=== PATIENT | male | born 1970 | race Caucasian/White ===

== ENCOUNTER 2024-10-05 17:50 | Emergency (ER) | payer OTHER, BC, SELFPAY ==
--- NOTE | ~2024-10-05 | XR_ITS ---
CLINICAL HISTORY: chest pain 1 view chest x-ray Comparison: None Findings: The lungs are clear. Normal size heart. No acute fracture. IMPRESSION: 1. No acute findings. This document has been electronically signed by: Reggie Reyes MD on 10/05/2024 18:39:39
[2024-10-05 18:08] VITALS: BP 111/70; PULSE 84; RESP 18; TEMP 36.7; O2SAT 93; BMI 34.8
--- NOTE | 2024-10-05 18:09 | ECG_ITS ---
Test Reason : tachycardia Blood Pressure : */* mmHG Vent. Rate : 68 BPM Atrial Rate : 68 BPM P-R Int : 136 ms QRS Dur : 92 ms QT Int : 374 ms P-R-T Axes : 30 40 48 degrees QTcB Int : 397 ms Normal sinus rhythm Normal ECG When compared with ECG of 26-Dec-2016 18:17, No significant change was found Referred By: Camacho Bass Electronically Signed By: DELLA ROWE
--- NOTE | 2024-10-05 18:18 | ED.GENADULT ---
HPI - General Adult General Chief complaint: Arrhythmia/Palpitations Stated complaint: . heart is escalating w headache Time Seen by Provider: 10/05/24 21:08 Source: patient Mode of arrival: ambulatory Limitations: no limitations History of Present Illness ED Provider: HPI narrative: patient no significant past medical history been having palpitation with heart rate ranging to 110-115 whenever he exert without any chest pain shortness a breath no diaphoresis no syncope also having occipital headache symptoms continuing for last 2 weeks he had minor head injury on 09/04 CT scan of the head is negative at that time patient does have history of migraine headache denies any significant caffeine intake Related Data Previous Rx's ?Medication ?Instructions ?Recorded oxwwgaffpo-pmqxfqoocdtcd-tvbsndor 1 tab PO Q6H PRN haeadace #20 tabs 10/05/24 50 mg-325 mg-40 mg tablet Allergies Allergy/AdvReac Type Severity Reaction Status Date / Time No Known Allergies Allergy Verified 10/05/24 18:09 [No Known Allergies*] Review of Systems Review of Systems: Yes all other systems are reviewed and are negative [facility] Social History Social History Alcohol intake: current Alcohol intake frequency: holidays/special occasions only Alcohol type: beer and hard liquor Smoked in Last 30 Days: No Use of substances other than those prescribed or required for medical reasons: No Advance Directives: No Advance Directives Information Provided: Yes Physical Exam ED Vital Signs: Vital Signs - 24 hr 10/05/24 18:08 10/05/24 21:49 10/05/24 22:01 Temperature 98.0 F 97.7 F 97.7 F Pulse Rate 84 78 78 Respiratory Rate 18 16 16 Blood Pressure 111/70 105/61 105/61 Pulse Oximetry 93 96 96 Oxygen Delivery Method Room Air Room Air Room Air BMI result Body Mass Index 34.8 Appearance: Alert. Oriented X3. No acute distress. Eyes: no pallor or icterus ENT: Pharynx normal. Oral Mucosa moist Neck: Normal inspection. Neck supple. CVS: Normal heart rate and rhythm. Pulses normal. Respiratory: No respiratory distress. Equal air entry bilateral, no wheezing/rales/rhonchi Abdomen: Soft and nontender. Bowel sounds are present, no mass palpable Skin: Skin warm and dry. Normal skin color. Normal skin turgor. Extremities: No lower extremity edema. No calf tenderness Neuro: Oriented X 3. Course Course Course Narrative: RME: Patient presents to ED for tachycardia. Patient states when he exerts himself heart rate went up to 115. Patient denies any chest pain shortness of breath or diaphoresis. Denies any leg swelling or calf pain. Patient denies any pleurisy. Labs EKG x-ray ordered. Medical Decision Making Medical Decision Making [facility] Narrative: patient nonspecific episodes of palpitation without any shortness a breath or chest pain during exertion likely sinus tachycardia patient is advised to follow with bank accountant for further workup including Holter monitoring patient's workup in the ER negative for acute cardiac event Differential Diagnosis Differential Diagnoses: The differential diagnosis associated with the presentation includes SVT/atrial flutter/atrial fibrillation Lab Data [facility] Lab Attestation statement: I reviewed the patient's lab results. 10/05/24 18:24 10/05/24 18:22 Labs: Lab Results 10/05/24 10/05/24 10/05/24 Range/Units 18:22 18:24 19:34 WBC 6.0 (4.8-10.8) X10*3/uL RBC 4.58 L (4.60-5.80) X10*6/uL Hgb 13.7 L (14.0-18.0) g/dl Hct 40.9 L (42.0-52.0) % MCV 89.3 (80.0-98.0) fL MCH 29.9 (27.0-33.0) pg MCHC 33.5 (31.0-36.0) g/dl RDW 12.3 (11.0-16.0) % Plt Count 210 (160-400) X10*3/uL MPV 9.8 (9.4-12.4) fL Immature Gran % (Auto) 0.2 (0.0-0.4) % Neut % (Auto) 54.3 (45-73) % Lymph % (Auto) 34.2 (20-40) % [place] % (Auto) 8.3 (2-11) % Eos % (Auto) 2.3 (0-4) % Baso % (Auto) 0.7 (0-2) % Lymph # (Auto) 2.1 (1.2-4.9) X10*3/uL [place] # (Auto) 0.5 (0.1-1.2) X10*3/uL Eos # (Auto) 0.1 (0.0-0.4) X10*3/uL Baso # (Auto) 0.0 (0.0-0.2) X10*3/uL Abs Immat Gran (auto) 0.01 (0.00-0.03) X10*3/uL Absolute Neuts (auto) 3.3 (2.0-8.3) x10*3/uL Absolute Nucleated RBC 0.000 (0.0-0.012) X10*3/uL Nucleated RBC % (auto) 0.0 (0.0-0.2) /100WBC PT 9.9 L (10.9-12.4) SEC INR 0.9 (0.9-1.1) APTT 30.2 (26.0-36.8) SEC Sodium 140 (135-145) mmol/L Potassium 4.1 (3.3-5.1) mmol/L Chloride 111 H (96-108) mmol/L Carbon Dioxide 22 (22-29) mmol/L Anion Gap 11 L (12-20) BUN 16 (9-16) mg/dL Creatinine 1.00 (0.5-1.4) mg/dL Estim Creat Clear Calc 111.6 Estimated GFR > 60 Random Glucose 94 (60-115) mg/dL Calcium 9.2 (8.4-10.2) mg/dL Total Bilirubin 0.3 (0.0-1.0) mg/dL AST 35 (5-37) U/L ALT 28 (0-40) U/L Alkaline Phosphatase 85 (39-117) U/L Troponin I High Sens < 2.7 (<3.5-35.0) ng/L B-Natriuretic Peptide 14 (<100) pg/mL Total Protein 6.8 (6.5-8.0) g/dL Albumin 4.3 (3.5-5.0) g/dL Independent Interpretation I performed an independent interpretation of an: EKG Interpretation: normal sinus rhythm heart rate 68 beats per minute normal interval normal axis no acute ST-T changes no acute ischemia Discharge Plan Discharge Clinical Impression: Palpitations, Migraine Patient Disposition: Home, Self-Care Instructions: Heart Palpitations (ED), Migraine Headache (ED) Additional Instructions: take medication for migraine headache follow up with bank accountant/ PCP for further evaluation decrease caffeine intake report to ER if passing out episode/ chest pain not feeling better Prescriptions: New ejzxuejcau-xwdzhdrqyypym-nnfb 50-325-40 mg tablet 1 tab PO Q6H PRN (Reason: haeadace) Qty: 20 0RF Referrals: Robert Dowd MD [Physician] - 10 days Interventions: ED Discharge Assessment Last Done: 10/05/24 22:01 Discharge Date/Time: 10/05/24 22:01 Print Language: Greek
[2024-10-05 18:27] LABS: MANUAL DIFF FLAG NO
[2024-10-05 18:32] LABS: Basophils Percent Auto 0.7 % (0-2); Eosinophils Absolute Auto 0.1 X10*3/uL (0.0-0.4); Eosinophils Percent Auto 2.3 % (0-4); Hematocrit 40.9 % (42.0-52.0); Hemoglobin 13.7 g/dl (14.0-18.0); Imm Gran Abs Auto 0.01 X10*3/uL (0.00-0.03); Imm Gran Pct Auto 0.2 % (0.0-0.4); Lymphocytes Absolute Auto 2.1 X10*3/uL (1.2-4.9); Lymphocytes Percent Auto 34.2 % (20-40); Mean Corpuscular HGB Conc 33.5 g/dl (31.0-36.0); Mean Corpuscular Hemoglobin 29.9 pg (27.0-33.0); Mean Corpuscular Volume 89.3 fL (80.0-98.0); Mean Platelet Volume 9.8 fL (9.4-12.4); Monocytes Absolute Auto 0.5 X10*3/uL (0.1-1.2); Monocytes Percent Auto 8.3 % (2-11); Neutrophils Absolute Auto 3.3 x10*3/uL (2.0-8.3); Neutrophils Percent Auto 54.3 % (45-73); Platelet Count 210 X10*3/uL (160-400); Red Blood Count 4.58 X10*6/uL (4.60-5.80); Red Cell Distribution Width 12.3 % (11.0-16.0)
[2024-10-05 18:42] LABS: Alanine Aminotransferase 28 U/L (0-40); Albumin Level 4.3 g/dL (3.5-5.0); Alkaline Phosphatase 85 U/L (39-117); Anion Gap 11 (12-20); Aspartate Amino Transferase 35 U/L (5-37); Bilirubin Total 0.3 mg/dL (0.0-1.0); Blood Urea Nitrogen 16 mg/dL (9-16); Calcium 9.2 mg/dL (8.4-10.2); Carbon Dioxide 22 mmol/L (22-29); Chloride 111 mmol/L (96-108); Creatinine Clr Calc Pharmacy 111.6; Estimated Glomerular Filt Rate > 60; Glucose Random 94 mg/dL (60-115); Potassium 4.1 mmol/L (3.3-5.1); Sodium 140 mmol/L (135-145); Total Protein 6.8 g/dL (6.5-8.0)
[2024-10-05 18:49] LABS: B Type Natriuretic Peptide 14 pg/mL (<100)
[2024-10-05 18:53] LABS: Troponin-I High Sensitivity < 2.7 ng/L (<3.5-35.0)
[2024-10-05 19:43] LABS: INTERNATIONAL NORM RATIO 0.9 (0.9-1.1); Prothrombin Time 9.9 SEC (10.9-12.4)
[2024-10-05 19:46] LABS: Partial Thromboplastin Time 30.2 SEC (26.0-36.8)
[2024-10-05 21:49] VITALS: BP 105/61; PULSE 78; RESP 16; TEMP 36.5; O2SAT 96
[2024-10-05 22:01] VITALS: BP 105/61; PULSE 78; RESP 16; TEMP 36.5; O2SAT 96
== END 2024-10-05 22:01 | disposition home or self-care (01) ==
PROVIDERS: Physician Assistant; Emergency Provider Internal Medicine; PCP Nurse Practitioner Family
DX: I49.9 Cardiac arrhythmia, unspecified (principal); G43.909 Migraine, unspecified, not intractable, without status migrainosus; R00.0 Tachycardia, unspecified; Z79.899 Other long term (current) drug therapy
CPT/HCPCS: 36415; 71045; 80053; 83880; 84484; 85025; 85610; 85730; 93005; 99283; 99284

== ENCOUNTER → 2024-10-05 18:09 | Outpatient (BNV) | payer OTHER, BC, SELFPAY | PROVIDERS: Emergency Provider Internal Medicine; PCP Nurse Practitioner Family; Visit Provider Internal Medicine | DX: R00.0 Tachycardia, unspecified (principal) | CPT/HCPCS: 93010 ==

== ENCOUNTER → 2024-10-05 18:17 | Outpatient (BNV) | payer OTHER, SELFPAY | PROVIDERS: PCP Nurse Practitioner Family; Visit Provider Radiology Diagnostic Radiology | DX: R07.9 Chest pain, unspecified (principal) | CPT/HCPCS: 71045 ==

== ENCOUNTER 2024-11-02 08:27 | Outpatient (AMB) | payer OTHER, BC, SELFPAY ==
--- NOTE | 2024-11-02 08:29 | MHC.OFFVIS ---
Vital Signs 11/02/24 08:30 Height 6 ft 1 in Weight 267 lb 10.259 oz BMI 35.3 BP 108/62 Blood Pressure Location Lt brachial Position Sitting Pulse 72 Pulse Source Pulse Oximeter Intake Visit Reasons: [facility] Follow up-heart is escalating w headache Tip Length Checker Required: No Allergies No Known Allergies [No Known Allergies*] Allergy (Verified 11/02/24 08:31) Medication List - Last Reconciled 11/02/24 by VU Perez hzwmtgvwjv-itjoclizkxsab-nwjj 50-325-40 mg 1 tab PO Q6H PRN sertraline 25 mg PO DAILY HPI HPI [facility] Follow up-heart is escalating w headache: Details: Rubén is a 54-year-old male with no cardiac history who was recently seen in the emergency room for elevated heart rate and headache without significant findings. He was referred to Cardiology in follow-up. Today he presents for cardiology consultation. He tells me that on 08/28/24 he had a fall at work and sustained a head injury with contusion and concussion. He was out of work for a brief period of time, then put on light duty and is now back to work full-time, no restrictions. 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 He says these can be very heavy to lift and move. He has been noticing that when he does exertional activities he is getting a elevated heart rate and headache in the region of his contusion. He says he did not get this symptom prior to his fall in August. No chest discomfort, shortness of breath, lightheadedness, presyncope, syncope. He has never been diagnosed with hypertension. No diabetes or known hyperlipidemia. He has no family history of heart disease. He smoked briefly as a teenager and quit age 17. He has rare alcohol use. He does not engage in any routine exercise. [facility] Social History Alcohol intake: current Alcohol intake frequency: holidays/special occasions only Alcohol type: beer and hard liquor Review of Systems Const All systems reviewed & are unremarkable except as noted in HPI and below Reports headache(s) (with physical exertion) ENT Denies dizziness and Reports headache(s) (with physical exertion) Card Details: pounding heart with exertion Denies chest pain, Denies chest pain at rest, Denies chest pain with activity, Denies rapid heart rate, Denies pedal edema, Denies edema, Denies leg edema, Denies lightheadedness, Denies palpitations, Denies dyspnea, Denies dyspnea on exertion and Denies orthopnea Resp Denies cough, Denies dyspnea and Denies dyspnea on exertion GI Denies hematochezia and Denies change in stool character Musc Denies abnormal gait, Denies limited range of motion, Denies muscle cramps, Denies muscle weakness, Denies numbness, Denies radiating pain into limb, Denies stiffness and Denies tingling Neuro Denies abnormal gait, Denies dizziness, Reports headache(s) (with physical exertion), Denies numbness and Denies tingling Endo Denies palpitations Physical Exam Vital Signs: Last Vital Signs Pulse 72 11/02/24 08:30 BP 108/62 11/02/24 08:30 BMI result Body Mass Index 35.3 Const General: cooperative, healthy appearing, comfortable and no acute distress Orientation/consciousness: patient oriented x3 Neck Neck: Yes normal visual inspection and Yes no JVD Resp Effort & Inspection: normal respiratory effort Auscultation: clear to auscultation bilaterally, no crackles, no rales, no rhonchi and no wheezes Cardio Rate: regular rate Rhythm: regular rhythm Heart sounds: S1 normal heart sound present, S2 normal heart sound present, no murmurs and no rubs Neuro General: patient oriented x3 Extrem General: Yes normal to inspection and No no pedal edema Psych Appearance: grossly normal Mental Status: mental status grossly normal Speech and movement: Normal speech and movement present Assessment & Plan Assessment & Plan (1) Palpitations: Code(s): R00.2 - Palpitations Category: Medical Plan: Reports of elevated heart rate with physical activity, resulting in headache. EKG done in the emergency room shows normal sinus rhythm with no acute ST or T-wave abnormalities, rate 81. Heart rate and blood pressure are normal on examination today. It is possible that his blood pressure is elevated with physical activity and contributing to the headache that he is feeling. He can continue activity as tolerated. Will check Holter monitor to assess for any arrhythmia and average heart rate. Will check a exercise stress test to evaluate heart rate and blood pressure response to activity. Will order echocardiogram to ensure there is no structural heart disease. Instructed to maintain good hydration, limit caffeinated beverages, take Tylenol or ibuprofen as needed for headache symptom. Cardiology follow-up 1 month, sooner if needed to go over test results. (2) Headache: Code(s): R51.9 - Headache, unspecified Category: Medical Plan: as above Plan Time spent on chart review, document, interview, assessment Orders: Orders CA echo transthoracic complete Today R00.2 - Palpitations CA stress test Today R00.2 - Palpitations ECG 3 day holter monitor Today R00.2 - Palpitations Coding Level of Care Code New Pt Level 3 (63266) Complex EM visit Add On G2211 Diagnoses Palpitations R00.2 Headache R51.9 Time Spent (min) 26
[2024-11-02 08:30] VITALS: BP 108/62; PULSE 72; BMI 35.3
--- OUTSIDE RECORDS SUMMARY | 2024-11-02 08:51 | XMS_ITS | Clinical Summary ---
Author Organization [address] [place] [address] [place] [address] Phone Care Team Providers Care Lead Clinical Research Coordinator Name Role Phone Nael Gonzalez MD Primary Care Provider Allergies No known active allergies Medications multivitamin (MULTIPLE VITAMINS ORAL) Take by mouth daily. Active SAW PALMETTO ORAL OTC Active sertraline (ZOLOFT) 25 mg tablet Take 1 tablet (25 mg total) by mouth 1 (one) time each day. 30 each 5 08/17/2024 Active acetaminophen (TYLENOL) 500 mg tablet Take 2 tablets (1,000 mg total) by mouth every 8 (eight) hours if needed. Was given at the ER Active ibuprofen (ADVIL,MOTRIN) 600 mg tablet Take 1 tablet (600 mg total) by mouth every 8 (eight) hours if needed for headaches. 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, without loss of consciousness, subsequent encounter (Primary Dx) 09/10/2024 Telephone Adult Medicine [address] [phone] Nael Gonzalez MD Forms/questionnaires 09/09/2024 9:45 AM EST Office Visit Adult [address] [phone] Kimberly Jackson NP 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, without loss of consciousness, subsequent encounter (Primary Dx); Hospital discharge follow-up 08/17/2024 2:45 PM EST Office Visit [address] [phone] Nael Gonzalez MD Anemia, unspecified type (Primary Dx); Family history of diabetes insipidus; Memory deficit; Stress at home from Last 3 Months Immunizations Name Administration Dates Next Due Influenza trivalent, 0.5mL, preservative free (Fluarix; FluLaval; Fluzone) ages 6mo and older (Afluria) 3 years and older 05/08/2013 Tdap Tetanus diptheria acell ular pertussis (Boostrix; Adacel) 7yo and older 03/06/2024,05/08/2013 Surgical History Surgery Date Site/Laterality Comments APPENDECTOMY PROCEDURE: HISTORICAL APPENDECTOMY OTHER SURGICAL HISTORY PROCEDURE: ORAL SURGERY SINGLE TOOTH; COMMENT: all top teeth Medical History Medical History Date Comments Obesity 05/14/2014 DX:Obesity Family History Medical History Relation Name Comments Diabetes Father Heart attack Father 1st CO at age 6 2 Hypertension Father Other: hemochromatosis Father Hypertension Mother breast ca at ag e 67, mets to brain lung Diabetes Paternal Grandfather Lung cancer Paternal Grandmother heavy s moker Diabetes Sister 1 Diabetes Sister 2 Relation Name Status Comments Father Alive Mother Paternal Grandfather Paternal Grandmother Sister 1 Sister 2 Sister 3 half Alive Social History Tobacco Use Types Packs/Day Years Used Date Smoking Tobacco: Former Cigarettes Q uit: 07/08/1987 Smokeless Tobacco: Never Alcohol Use Standard Drinks/Week Comments Yes 0 (1 standard drink = 0.6 oz pur e alcohol) Housing Instability Answer Date Recorde d Are you worried that in the next 2 months you may not have stable housing? Patient declined 08/15/2024 Food Access & Nutrition Answer Date Rec orded Do you have access to a vari ety of food including fruits and vegetables? Yes 08/15/2024 Access to Healthcare Answer Date Record ed Within the last 3 months, ho w many times did you visit the emergency department for your medical care? 0 08/15/2024 Health Literacy Answer Date Recorded How often do you need to hav e someone help you when you read instructions, pamphlets, or other written material from your doctor or pharmacy? Never 08/15/2024 Caregiver: How often do you need to have someone help you when you read instructions, pamphlets, or other written material from your doctor or pharmacy? Not on file 08/15/2024 Financial Risk Answer Date Recorded How hard is it for you to pa y for the very basics like food, housing, medical care, and air conditioning / heating? Somewhat hard 08/15/2024 Transportation Answer Date Recorded Has the lack of transportati on kept you from meetings, work, or from getting things needed for daily living? No Has the lack of transportati on kept you from medical appointments or from getting medications? No 08/15/2024 Social Isolation Answer Date Recorded How often do you feel lonely or isolated from th ose around you? Often 08/15/2024 Food Risk Answer Date Recorded Within the past 12 months we worried whether our food would run out before we got money to buy more. Patient declined 025 Within the past 12 months th e food we bought just didn't last and we didn't have money to get more. Patient declined 02/2025 Dependent Care Answer Date Recorded Do you need help finding or paying for care for your loved ones. For example, children teacher or elderly care for an older adult? Patient declined 08/15/2024 Education Answer Date Recorded Do you think completing more education or training, like finishing a GED, going to college, or learning a trade, would be helpful for you? Patient declined 08/15/2024 Employment and Income Answer Date Recor ded During the last four weeks, have you been actively looking for work? Patient declined 08/15/2024 Living Situation Answer Date Recorded What is your living situation? 0 08/15/2024 Sex and Gender Information Value Date Recorded Sex Assigned at Not on file Legal Sex Male 7:01 PM EST Gender Identity Not on file Sexual Orientation Not on file Obstetrics History Last Filed Vital Signs Vital Sign Reading Time Taken Comments Blood Pressure 126/66 09/16/2024 9:47 AM EDT Pulse 58 09/16/2024 9:47 AM EDT Temperature 36 ??C (96.8 ??F) 09/16/2024 9:47 AM EDT Respiratory Rate 16 09/16/2024 9:47 AM EDT Oxygen Saturation 97% 09/16/2024 9:47 AM EDT Inhaled Oxygen Concentration - - Weight 117 kg (258 lb 3.2 oz) 09/16/2024 9:47 AM EDT Height 185.4 cm (6' 1 ) 09/16/2024 9:47 AM EDT Body Mass Index 34.07 09/16/2024 9:47 AM EDT Plan of Treatment Upcoming Encounters Date Type Department Care Team (Late st Contact Info) Description 11/02/2024 2:30 PM EDT Office Visit Adult Medicine [facility] [address] [place] [address] Nael Gonzalez MD [address] [place] [address] Health Maintenance Due Date Last Done Comments Hepatitis B Vaccines (1 of 3 - 19+ 3-dose series) 09/22/1987 Pneumococcal Vaccine: 50+ Years (1 of 1 - PCV) 2018 COVID-19 Vaccine (4 - 2023-2 5 season) 2024 07/03/2021, 11/12/2020, 10/22/2020 Influenza Vaccine (Season Ended) 2025 04/12/2021, 05/08/2013 Depression Screening 08/15/2025 08/15/2024 Social Influencers of Health Screening 08/15/2025 08/15/2024 Colorectal Cancer Screening: Colonoscopy 07/09/2029 07/09/2019 Cholesterol Screening (Lipid Panel) 10/27/2029 10/27/2024, 05/01/2019 DTaP,Tdap,and Td Vaccines (3 - Td or Tdap) 03/06/2034 03/06/2024, 05/08/2013 HIV Screening Completed 05/01/2019 Hepatitis C Screening Completed 05/01/2019 Zoster Vaccines Completed 08/04/2020, 04/08/2020 HIB Vaccines Aged Out No longer eligi ble based on patient's age to complete this topic HPV Vaccines Aged Out No longer eligi ble based on patient's age to complete this topic Hepatitis A Vaccines Aged Out No long er eligible based on patient's age to complete this topic IPV Vaccines Aged Out No longer eligi ble based on patient's age to complete this topic MMR Vaccines Aged Out No longer eligi ble based on patient's age to complete this topic Meningococcal ACWY Vaccine Aged Out N o longer eligible based on patient's age to complete this topic Meningococcal B Vaccine Aged Out No l onger eligible based on patient's age to complete this topic Pneumococcal Vaccine: Pediatrics (0 to 5 Years) and At-Risk Patients (6 to 64 Years) Aged Out No longer eligible b ased on patient's age to complete this topic RSV Immunization Patients Under 20 months Aged Out No longer eligible b ased on patient's age to complete this topic Varicella Vaccines Aged Out No longer eligible based on patient's age to complete this topic Procedures Procedure Name Priority Date/Time Associated Diagnosis Comments CBC WITH AUTO DIFFERENTIAL Routine 10/27/2024 4:31 PM EDT Anemia, unspecified type CBC AND DIFFERENTIAL Routine 10/27/2024 4:31 PM EDT Anemia, unspecified type VITAMIN B12 AND FOLATE Routine 4:31 PM EDT Anemia, unspecified type FERRITIN Routine 10/27/2024 4:31 PM EDT Anemia, unspecified type LIPID PANEL WITH REFLEX TO DIRECT LDL Routine 10/27/2024 4:31 PM EDT Family history of diabetes insipidus CBC WITH AUTO DIFFERENTIAL Routine 08/11/2024 2:56 PM EST Routine general medical examination at a health care facility HEMOGLOBIN A1C Routine 08/11/2024 2:56 PM EST Routine general medical examination at a health care facility THYROID STIMULATING HORMONE Routine 08/11/2024 2:56 PM EST Routine general medical examination at a health care facility PROSTATE SPECIFIC ANTIGEN SCREEN Routine 08/11/2024 2:56 PM EST Routine general medical examination at a health care facility TESTOSTERONE, TOTAL Routine 08/11/2024 2 :56 PM EST Routine general medical examination at a health care facility COMPREHENSIVE METABOLIC PANEL Routine 08/11/2024 2:56 PM EST Routine general medical examination at a health care facility CBC AND DIFFERENTIAL Routine 08/11/2024 2:56 PM EST Routine general medical examination at a health care facility COLONOSCOPY Routine 07/09/2019 HEPATITIS C SCREENING Routine 05/01/2019 HIV SCREENING Routine 05/01/2019 from Last 3 Months or Most Recently Relevant to Health Maintenance Results * (ABNORMAL) Vitamin B12 and folate (10/27/2024 4:31 PM EDT) Vitamin B-12 520 250 - 900 pcg/mL LAB CHEMISTRY METHOD 10/27/2024 7:45 PM EDT [facility] Folate >20.0(H) 2.8 - 17.0 ng/ml LAB CHEMISTRY METHOD 10/27/2024 7:45 PM EDT [facility] Blood Venous blood specimen / Unknown Venipuncture / Unknown 10/27/2024 4:31 PM EDT 10/27/2024 4:31 PM EDT us Nael Gonzalez MD LAB BLOOD ORDERABLES Final Resul t [facility] [address] [place] [address], [place] [phone] * (ABNORMAL) Lipid panel with reflex to direct LDL (10/27/2024 4:31 PM EDT) Pathologist [facility] Cholesterol 193 0 - 200 mg/dL LAB CHEMISTRY METHOD 10/27/2024 7:23 PM EDT [facility] Triglycerides 277(H) 0 - 150 mg/dL LAB CHEMISTRY METHOD 10/27/2024 7:23 PM EDT [facility] HDL 44 >=40 mg/dL LAB CHEMISTRY METHOD 10/27/2024 7:23 PM EDT [facility] LDL Calculated 94 0 - 100 mg/dL LAB CHEMISTRY METHOD 10/27/2024 7:23 PM EDT [facility] VLDL Cholesterol Heath 55.4 mg/dL LAB CHEMISTRY METHOD 10/27/2024 7:23 PM EDT [facility] Non HDL Chol. (LDL+VLDL) 149(H) <145 mg/dL LAB CHEMISTRY METHOD 10/27/2024 7:23 PM EDT [facility] Chol/HDL Ratio 4.4 0.0 - 4.4 LAB CHEMISTRY METHOD 10/27/2024 7:23 PM EDT [facility] Blood Venous blood specimen / Unknown Venipuncture / Unknown 10/27/2024 4:31 PM EDT 10/27/2024 4:31 PM EDT us Nael Gonzalez MD LAB BLOOD ORDERABLES Final Resul t [facility] [address] [place] [address], * (ABNORMAL) CBC auto differential (10/27/2024 4:31 PM EDT) Only the most recent of2 resultswithin the time period is included. Pathologist [facility] WBC 5.3 4.8 - 10.8 K/[facility] LAB HEMETOLOGY METHOD 10/27/2024 6:30 PM EDT [facility] RBC 4.20(L) 4.50 - 5.50 M/mcL LAB HEMETOLOGY METHOD 10/27/2024 6:30 PM EDT [facility] Hemoglobin 12.9(L) 13.5 - 17.5 g/dL LAB HEMETOLOGY METHOD 10/27/2024 6:30 PM EDT [facility] Hematocrit 38.5(L) 42.0 - 54.0 % LAB HEMETOLOGY METHOD 10/27/2024 6:30 PM EDT [facility] MCV 91.0 79.0 - 98.0 FL LAB HEMETOLOGY METHOD 10/27/2024 6:30 PM EDT [facility] MCH 30.5 27.0 - 32.0 pcg LAB HEMETOLOGY METHOD 10/27/2024 6:30 PM EDT [facility] MCHC 33.5 32.0 - 37.0 g/dL LAB HEMETOLOGY [facility] RDW 12.0 11.0 - 15.0 % LAB HEMETOLOGY METHOD 10/27/2024 6:30 PM EDT [facility] Platelets 204 130 - 400 K/mcL LAB HEMETOLOGY METHOD [facility]/27[facility]24 [facility] MPV 10.5 7.0 - 11.0 FL LAB HEMETOLOGY METHOD 10/27/2024 6:30 PM EDT [facility] NRBC 0.0 <1.0 % LAB HEMETOLOGY METHOD 10/27/2024 6:30 PM EDT [facility] NRBC Absolute 0.00 <0.10 K/mcL LAB HEMETOLOGY METHOD 10/27[facility]2024 6:[facility] Neutrophils Relative 53.7 % LAB HEMETOLOGY METHOD 10/27/2024 6:[facility] Lymphocytes Relative 34.8 % LAB HEMETOLOGY METHOD 10/27/2024 6:30 PM EDT [facility] Monocytes Relative 7.5 % LAB HEMETOLOGY METHOD 10/27/2024 6:30 PM EDT [facility] Eosinophils Relative 2.8 % LAB HEMETOLOGY METHOD 10/27/2024 6:30 PM EDT [facility] Basophils Relative 0.8 % LAB HEMETOLOGY METHOD 10/27/2024 6:30 PM EDT [facility] Immature Granulocytes Relative 0.4 % LAB HEMETOLOGY METHOD 10/27/2024 6:30 PM EDT [facility] Neutrophils Absolute 2.86 1.50 - 7.00 K/mcL LAB HEMETOLOGY METHOD 10/27/2024 6:30 PM EDT [facility] Lymphocytes Absolute 1.85 1.00 - 5.00 K/mcL LAB HEMETOLOGY METHOD 10/27/2024 6:30 PM EDT [facility] Monocytes Absolute 0.40 0.20 - 1.00 K/mcL LAB HEMETOLOGY METHOD 10/27/2024 6:30 PM EDT [facility] Eosinophils Absolute 0.15 0.00 - 0.50 K/mcL LAB HEMETOLOGY METHOD 10/27/2024 6:30 PM EDT [facility] Basophils Absolute 0.04 0.00 - 0.20 K/mcL LAB HEMETOLOGY METHOD 10/27/2024 6:30 PM EDT [facility] Immature Granulocytes Absolute 0.02 0.00 - 0.03 K/mcL LAB HEMETOLOGY METHOD 10/27/2024 6:30 PM EDT [facility] Blood Venous blood specimen / Unknown Venipuncture / Unknown 10/27/2024 4:31 PM EDT 10/27/2024 4:31 PM EDT us Nael Gonzalez MD LAB BLOOD ORDERABLES Final Resul t [facility] [address] [place] [address], [place] [phone] * Ferritin (10/27/2024 4:31 PM EDT) [facility] Ferritin 141 26 - 388 ng/mL LAB CHEMISTRY METHOD 10/27/2024 7:45 PM EDT [facility] Blood Venous blood specimen / Unknown Venipuncture / Unknown 10/27/2024 4:31 PM EDT 10/27/2024 4:31 PM EDT us Nael Gonzalez MD LAB BLOOD ORDERABLES Final Resul t Performing Organization Address [facility] Co de Phone Number [facility] [address] [place] [address], [place] [phone] * Prostate specific antigen screen (08/11/2024 2:56 PM EST) [facility] PSA 0.50 0.00 - 4.00 ng/mL LAB CHEMISTRY METHOD 08/11/2024 7:39 PM EST [facility] Blood Venous blood specimen / Unknown Venipuncture / Unknown 08/11/2024 2:56 PM EST 08/11/2024 2:56 PM EST Narrative [facility] - 08/11/2024 7:39 PM EST The Siemens Advia Centaur Chemiluminescent Immunoassay is used. Results obtained with different assay methods or kits cannot be used interchangeably. Results cannot be interpreted as absolute evidence of the presence or absence of malignant disease. us Nael Gonzalez MD LAB BLOOD ORDERABLES Final Resul t Performing Organization Address [facility]/ZIP Co de Phone Number [facility] [address] [place] [address], [place] [phone] * Thyroid stimulating hormone (08/11/2024 2:56 PM EST) [facility] TSH 2.50 0.40 - 4.00 mcIU/mL LAB CHEMISTRY METHOD 08/11/2024 7:33 PM EST [facility] Blood Venous blood specimen / Unknown Venipuncture / Unknown 08/11/2024 2:56 PM EST 08/11/2024 2:56 PM EST us Nael Gonzalez MD LAB BLOOD ORDERABLES Final Resul t [facility] [address] [place] [address], [place] [phone] * Testosterone, total (08/11/2024 2:56 PM EST) Testosterone 383 229 - 902 ng/dL LAB CHEMISTRY METHOD 08/11/2024 7:33 PM EST [facility] Blood Venous blood specimen / Unknown Venipuncture / Unknown 08/11/2024 2:56 PM EST 08/11/2024 2:56 PM EST us Nael Gonzalez MD LAB BLOOD ORDERABLES Final Resul t Performing Organization Address City/[facility]/ZIP Co de Phone Number [facility] [address] [place] [address], [place] [phone] * Hemoglobin A1c (08/11/2024 2:56 PM EST) Hemoglobin A1C 5.4 <6.5 % LAB CHEMISTRY METHOD 08/12/2024 10:37 AM EST [facility] Mean Bld Glu Estim. 108 mg/dL LAB CHEMISTRY METHOD 08/12/2024 10:37 AM EST [facility] Blood Venous blood specimen / Unknown Venipuncture / Unknown 08/11/2024 2:56 PM EST 08/11/2024 2:56 PM EST us Nael Gonzalez MD LAB BLOOD ORDERABLES Final Resul t [facility] [address] [place] [address], [place] [phone] * (ABNORMAL) Comprehensive metabolic panel (08/11/2024 2:56 PM EST) Sodium 141 133 - 145 mmol/L LAB CHEMISTRY METHOD 08/11/2024 7:42 PM [facility] Potassium 4.2 3.5 - 5.5 mmol/L LAB CHEMISTRY METHOD 08/11/2024 7:42 PM [facility] Chloride 108 96 - 110 mmol/L LAB CHEMISTRY METHOD 08/11/2024 7:42 PM [facility] CO2 31 21 - 32 mmol/L LAB CHEMISTRY METHOD 08/11/2024 7:42 PM [facility] Anion Gap 2(L) 3 - 11 LAB CHEMISTRY METHOD 08/11/2024 7:42 PM [facility] Glucose 78 70 - 100 mg/dL LAB CHEMISTRY METHOD 08/11/2024 7:42 PM [facility] BUN 17 5 - 25 mg/dL LAB CHEMISTRY METHOD 08/11/2024 7:42 PM [facility] Creatinine 1.19 0.70 - 1.30 mg/dL LAB CHEMISTRY METHOD 08/11/2024 7:42 PM [facility] eGFR 72 >=60 mL/min/1. 73m2 LAB CHEMISTRY METHOD 08/11/2024 7:42 PM [facility] Comment:Calculation based on the??Chronic Kidney Disease Epidemiology Collaboration (CKD-EPI) equation refit??without adjustment for race. BUN/Creatinine Ratio 14.3 LAB CHEMISTRY METHOD 08/11/2024 7:42 PM [facility] Calcium 8.9 8.5 - 10.5 mg/dL LAB CHEMISTRY METHOD 08/11/2024 7:42 PM [facility] AST (SGOT) 14 10 - 42 unit/L LAB CHEMISTRY METHOD 08/11/2024 7:42 PM [facility] ALT (SGPT) 19 10 - 60 unit/L LAB CHEMISTRY METHOD 08/11/2024 7:42 PM EST [facility] Alkaline Phosphatase 102 42 - 121 unit/L LAB CHEMISTRY METHOD 08/11/2024 7:42 PM [facility] Total Protein 6.7 6.0 - 8.0 g/dL LAB CHEMISTRY METHOD 08/11/2024 7:42 PM EST [facility] Albumin 4.1 3.2 - 5.0 g/dL LAB CHEMISTRY METHOD 08/11/2024 7:42 PM [facility] Total Bilirubin 0.4 0.0 - 1.4 mg/dL LAB CHEMISTRY METHOD 08/11/2024 7:42 PM [facility] Blood Venous blood specimen / Unknown Venipuncture / Unknown 08/11/2024 2:56 PM EST 08/11/2024 2:56 PM EST Nael Gonzalez MD LAB BLOOD ORDERABLES Final Resul t [facility] [address] [place] [address], * Colonoscopy (07/09/2019) Pathologist [facility] Colonoscopy no interpretation , abstracted Anatomical Region Laterality Modality Other Hola Blount MD HEALTH MAINTENANCE Final Result * HIV Screening (05/01/2019) [facility] HIV Screening abstracted Hola Blount MD HEALTH MAINTENANCE Final Result * Hepatitis C Screening (05/01/2019) [facility] Hepatitis C Screening abstrated Hola Blount MD HEALTH MAINTENANCE Final Result from Last 3 Months or Most Recently Relevant to Health Maintenance Insurance BLUE CROSS - ID WC GENERIC Care Teams Lead Clinical Research Coordinator Relationship Specialty Start Date End Date Nael Gonzalez MD [address] [place] [id number] PCP - General 05/07/1999
== END 2024-11-02 09:10 | disposition home or self-care (01) ==
LOC: HO.HCS 08:27
PROVIDERS: PCP Nurse Practitioner Family; Visit Provider Nurse Practitioner Family
DX: R00.2 Palpitations (principal); R51.9 Headache, unspecified
CPT/HCPCS: 99203; G2211

== ENCOUNTER → 2024-11-02 08:27 | Outpatient (BNVA) | payer OTHER, BC, SELFPAY | PROVIDERS: PCP Nurse Practitioner Family; Visit Provider Nurse Practitioner Family ==

== ENCOUNTER → 2025-01-18 08:58 | Outpatient (REF) | payer BC, SELFPAY ==
--- NOTE | 2025-01-18 09:05 | CA_ITS ---
Acquisition Time: 2025-01-18 10:07:50 Total Exercise Time: 00:06:18 Test Indications: PALPITATIONSZ Medications: SERTRALINE Protocol: COLIN Max HR: 142 BPM 92% of Pred: 154 BPM Max BP: 134/72 mmHG Max Work Load: 7.4 METS Exercise stress test with exercise 6 mins 18 secs of Colin Protocol, achieving 86% MPHR, with reports of mild SOB, no chest pain, without any arrythmias, with normotensive response to exercise. Without any EKG changes meeting criteria for ischemia. In recovery, pt's breathing quickly improved. Test reviewed with Dr. Peralta. Referred By: Linda Puri Electronically Signed By: Drew Muller
--- NOTE | 2025-01-18 09:05 | HM_ITS ---
* Total monitoring time 2 days and 17 hours. * Underlying rhythm is sinus with an average rate of 73/Min. * Rare supraventricular ectopy. Short runs noted. Maximum rate 24 beats. Max heart rate 167/Min. * Rare ventricular ectopy. One episode of 3 beats. * No significant pauses or high-grade AV blocks. * No patient markers or diary events. MTDD
--- NOTE | 2025-01-18 09:05 | CA_ITS ---
Transthoracic Echocardiogram Patient (Last, First, Middle): Rubén Gonzalez, Gender: Male Date of : 1970 Age: 54 Procedure Date: 01/18/2025 Procedure Type: Transthoracic Echocardiogram Location: OP Height: 185.42 cm Weight: 121.11 kg BSA: 2.43 m2 Heart Rate: bpm BP: 102 / 68 mmHg Drawer In Jacquard Loom: ALIDA Referring MD: Linda Puri MONITORING AND EVALUATION ADVISOR-Rodolfo Symptoms: R00.2 - Palpitations Study Quality: Fair, contrast ECG Rhythm: Sinus Conclusions: - The left ventricular systolic function is normal. The visually estimated ejection fraction is between 55-60%. - No obvious valvular pathology seen on this study. Findings Procedure Information Contrast agent, definity, is being given per protocol without apparent complications. Left Ventricle Normal left ventricular cavity size. There is normal left ventricular wall thickness. The left ventricular systolic function is normal. The visually estimated ejection fraction is between 55-60%. There is no evidence of regional wall motion abnormalities. Diastolic function is normal for age. Right Ventricle Mildly increased right ventricular cavity size. There is normal right ventricular systolic function. Atria Both atria are normal in size. Aortic Valve There is a normal trileaflet aortic valve. There is no aortic valve stenosis. There is no aortic valve regurgitation. Mitral Valve The mitral valve appears normal. There is no mitral valve regurgitation. There is no mitral valve stenosis. Pulmonic Valve The pulmonic valve is likely normal. Tricuspid Valve There is trace tricuspid valve regurgitation. Tricuspid regurgitation envelope is inadequate for calculation of right ventricular systolic pressure. Great Vessels The asc aorta and aortic arch are normal in size. Venous The inferior vena cava is normal in size and collapses greater than 50% with inspiration. Pericardium/Pleural There is no evidence of pericardial effusion. Prior Study Comparison No prior study available for comparison. Recommendations, Care & Conclusions No obvious valvular pathology seen on this study. Measurements 2D Linear Measurements IVSd: 0.88 0.6-0.9/0.6-1.0 cm LVIDd: 5.34 3.9-5.3/4.2-5.9 cm LVIDd Index: 2.20 2.4-3.2/2.2-3.1 cm/m2 LVIDs: 3.23 2.0-3.6 cm LVPWd: 0.74 0.7-1.1 cm LA Diam: 2.90 2.7-3.8/3.0-4.0 cm LAIDs Index: 1.19 1.5-2.3 cm/m2 LV Mass: 191.82 67-162/88-224 g LV Mass Index: 78.94 43-95/49-115 g/m2 LVOT Diam: 2.30 3.0+(-)1.3 cm 2D Systolic Function EF 4C: 61.70 >55% EF 2C: 68.50 >55% EF BiP: 65.30 >55% Mitral Valve MV Pk E: 0.88 MV PK A: 0.42 MV Decel Time: 244.00 E/A: 2.10 E'Lateral: 9.25 E'Medial: 6.85 E/E' Med: 12.80 E/E' Lat: 9.50 PHT: 72.00 MVA PHT: 3.06 Decel Todd: 3.60 Aortic Valve AoV Pk Daniel: 1.13 AoV Mn Daniel: 0.85 AoV VTI: 0.25 AoV Pk Grad: 5.00 Aov Mn Grad: 3.00 ZOE Cont.VTI: 3.79 LVOT LVOT Pk Daniel: 1.06 LVOT Mn Daniel: 0.69 LVOT VTI: 0.23 LVOT Pk Grad: 4.00 LVOT Mn Grad: 2.00 LVOT Diam: 2.30 LVOT Area: 4.15 Diastolic Function MV Pk E: 0.88 MV Pk A: 0.42 E/A: 2.10 E'Medial: 6.85 E/E' Med: 12.80 E' Laterial: 9.25 E/E' Lat: 9.50 Right Ventricle TAPSE (mm): 21.90 TVS' Daniel: 13.40 Tricuspid Valve RA Press: 3.00 Great Vessels Aorta Sinus of Valsalva: 4.12 2.0-3.[address] Ridge: 3.24 1.7-3.4 cm Ao Asc: 3.80 2.1-3.4 cm Ao Arch: 3.30 Updated in Other Vendor System with Status of Final Wil Peralta MD electronically signed on 01/19/2025 12:28:09 PM with status of Final
--- OUTSIDE RECORDS SUMMARY | 2025-01-18 09:14 | XMS_ITS | Clinical Summary ---
Author Organization [address] [place] [address] [place] [address] Phone Care Team Providers Care Wind Turbine Controls Engineer Name Role Phone Nael Gonzalez MD Primary [...] Active Problems Problem Noted Date Diagnosed Date Depression 11/03/2024 Hyperglycemia 11/03/2024 Obesity (BMI 30-39.9) 11/03/2024 Anemia 11/03/2024 Overview (11/03/2024): Mild, ferritin 140, B12 folate level within normal limit, colonoscopy up-to-date in 2019 Memory difficulties 12/13/2017 Nocturia 08/14/2017 Cyst of right kidney 07/22/2017 Lumbar spondylosis 07/22/2017 Pure hypercholesterolemia 07/22/2017 Encounters Date Type Department Care Team Description 11/02/2024 2:30 PM EDT Office Visit Adult [facility] [address] [place] [address] Nael Gonzalez MD Memory difficulties (Primary Dx); Pure hypercholesterolemia; Depression, unspecified depression type; Hyperglycemia; Obesity (BMI 30-39.9); Anemia, unspecified type from Last 3 Months Immunizations Name Administration [...] Comments Diabetes Father Heart attack Father 1st [place] at age 6 2 Hypertension Father Other: [...] Cigarettes Q uit: 07/08/1987 Smokeless Tobacco: Never Tobacco Cessation:Counseling Given: Not Answered Alcohol Use Standard Drinks/Week Comments Yes 0 [...] for your loved ones. For example, children librarian or elderly care for an older adult? [...] Sign Reading Time Taken Comments Blood Pressure 111/76 11/02/2024 2:10 PM EDT Pulse 72 11/02/2024 2:10 PM EDT Temperature 36.2 C (97.1 F) 11/02/2024 2:10 PM EDT Respiratory Rate 20 11/02/2024 2:10 PM EDT Oxygen Saturation 97% 09/16/2024 9:47 AM EDT Inhaled Oxygen Concentration - - Weight 119 kg (262 lb) 11/02/2024 2:10 PM EDT Height 185.4 cm (6' 1 ) 11/02/2024 2:10 PM EDT Body Mass Index 34.57 11/02/2024 2:10 PM EDT Plan of Treatment Upcoming Encounters Date Type Department Care Team (Late st Contact Info) Description 05/04/2025 10:00 AM EDT Office Visit Adult Medicine [facility] [address] [place], [place] [phone] Kimberly Jackson B[employer]K [employer]ER [address] [place], [place] Health Maintenance Due Date Last Done Comments Hepatitis B Vaccines (1 of 3 - 19+ 3-dose series) 09/22/1987 Pneumococcal Vaccine: 50+ Years (1 of 1 - PCV) 2018 COVID-19 Vaccine (2023-2 5 season) 2024 07/03/2021, 11/12/2020, 10/22/2020 Influenza Vaccine (#1) 2025 , 05/08/2013 Depression Screening 08/15/2025 08/15/2024 Social Influencers [...] unspecified type VITAMIN B12 AND FOLATE Routine 10/27/2024 4:31 PM EDT Anemia, unspecified type FERRITIN Routine 10/27/2024 4:31 PM EDT Anemia, unspecified type LIPID PANEL WITH REFLEX TO DIRECT LDL Routine 10/27/2024 4:31 PM EDT Family history of diabetes insipidus HM COLONOSCOPY Routine 07/09/2019 HEPATITIS C SCREENING Routine 05/01/2019 HIV SCREENING Routine 05/01/2019 from Last 3 Months or Most Recently Relevant to Health Maintenance Results * (ABNORMAL) Vitamin B12 and folate (10/27/2024 4:31 PM EDT) Vitamin B-12 520 250 - 900 pcg/mL LAB CHEMISTRY METHOD 10/27/2024 7:45 PM EDT [facility] Folate >20.0(H) 2.8 - 17.0 ng/ml LAB CHEMISTRY METHOD 10/27/2024 7:45 PM EDT [facility] Blood Venous blood specimen / Unknown Venipuncture / Unknown 10/27/2024 4:31 PM EDT 10/27/2024 4:31 PM EDT us Nael Gonzalez MD LAB BLOOD ORDERABLES Final Resul t Performing Organization Address City/[facility]/ZIP Co de Phone Number [facility] [address] [place] [address], [place] [phone] * (ABNORMAL) Lipid panel with reflex to direct LDL (10/27/2024 4:31 PM EDT) Cholesterol 193 0 - 200 mg/dL LAB CHEMISTRY METHOD 10/27/2024 7:23 PM EDT [facility] Triglycerides 277(H) 0 - 150 mg/dL LAB CHEMISTRY METHOD 10/27/2024 7:23 PM EDT [facility] HDL 44 >=40 mg/dL LAB CHEMISTRY METHOD 10/27/2024 7:23 PM EDT [facility] LDL Calculated 94 0 - 100 mg/dL LAB CHEMISTRY METHOD 10/27/2024 7:23 PM EDT [facility] VLDL Cholesterol Heath 55.4 mg/dL LAB CHEMISTRY METHOD 10/27/2024 7:23 PM EDT [facility] Non HDL Chol. (LDL+VLDL) 149(H) <145 mg/dL LAB CHEMISTRY METHOD 10/27/2024 7:23 PM EDT [facility] Chol/HDL Ratio 4.4 0.0 - 4.4 LAB CHEMISTRY METHOD 10/27/2024 7:23 PM EDT [facility] Blood Venous blood specimen / Unknown Venipuncture / Unknown 10/27/2024 4:31 PM EDT 10/27/2024 4:31 PM EDT Nael Gonzalez MD LAB BLOOD ORDERABLES Final Resul t [facility] [address] [place] [address], [place] [phone] * (ABNORMAL) CBC auto differential (10/27/2024 4:31 PM EDT) WBC 5.3 4.8 - 10.8 K/mcL LAB HEMETOLOGY METHOD 10/27/2024 6:30 PM EDT [facility] RBC 4.20(L) 4.50 - 5.50 M/mcL LAB HEMETOLOGY METHOD 10/27/2024 6:[facility] Hemoglobin 12.9(L) 13.5 - 17.5 g/dL LAB HEMETOLOGY METHOD 10/27/2024 6:30 PM EDT [facility] Hematocrit 38.5(L) 42.0 - 54.0 % LAB HEMETOLOGY METHOD 10/27/2024 6:30 [facility] MCV 91.0 79.0 - 98.0 FL LAB HEMETOLOGY METHOD 10/27/2024 6:30 [facility] MCH 30.5 27.0 - 32.0 pcg LAB HEMETOLOGY METHOD 10/27/2024 6:30 [facility] MCHC 33.5 32.0 - 37.0 g/dL LAB HEMETOLOGY METHOD 10/27/2024 6:30 PM [facility] RDW 12.0 11.0 - 15.0 % LAB HEMETOLOGY METHOD 10/27/2024 6:30 PM [facility] Platelets 204 130 - 400 K/mcL LAB HEMETOLOGY METHOD 10/27/2024 6:30 [facility] MPV 10.5 7.0 - 11.0 FL LAB HEMETOLOGY METHOD 10/27/2024 6:30 [facility] NRBC 0.0 <1.0 % LAB HEMETOLOGY METHOD 10/27/2024 6:30 [facility] NRBC Absolute 0.00 <0.10 K/mcL LAB HEMETOLOGY METHOD 10/27/2024 6:30 [facility] Neutrophils Relative 53.7 % LAB HEMETOLOGY METHOD 10/27/2024 6:30 PM EDT [facility] Lymphocytes Relative 34.8 % LAB HEMETOLOGY METHOD 10/27/2024 6:30 PM [facility] Monocytes Relative 7.5 % LAB HEMETOLOGY METHOD 10/27/2024 6:30 PM [facility] Eosinophils Relative 2.8 % LAB HEMETOLOGY METHOD 10/27/2024 6:30 PM [facility] Basophils Relative 0.8 % LAB HEMETOLOGY METHOD 10/27/2024 6:30 PM [facility] Immature Granulocytes Relative 0.4 % LAB HEMETOLOGY METHOD 10/27/2024 6:30 PM [facility] Neutrophils Absolute 2.86 1.50 - 7.00 K/mcL LAB HEMETOLOGY METHOD 10/27/2024 6:30 PM [facility] Lymphocytes Absolute 1.85 1.00 - 5.00 K/mcL LAB HEMETOLOGY METHOD 10/27/2024 6:30 PM [facility] Monocytes Absolute 0.40 0.20 - 1.00 K/mcL LAB HEMETOLOGY METHOD 10/27/2024 6:30 PM [facility] Eosinophils Absolute 0.15 0.00 - 0.50 K/mcL LAB HEMETOLOGY METHOD 10/27/2024 6:30 PM [facility] Basophils Absolute 0.04 0.00 - 0.20 K/mcL LAB HEMETOLOGY METHOD 10/27/2024 6:30 PM [facility] Immature Granulocytes Absolute 0.02 0.00 - 0.03 K/mcL LAB HEMETOLOGY METHOD 10/27/2024 6:30 PM [facility] Blood Venous blood specimen / Unknown Venipuncture / Unknown 10/27/2024 4:31 PM EDT 10/27/2024 4:31 PM EDT Nael Gonzalez MD LAB BLOOD ORDERABLES Final Resul t Performing Organization Address City/[facility]/ZIP Co de Phone Number [facility] [address] [place] [address], [place] [phone] * Ferritin (10/27/2024 4:31 PM EDT) [facility] Ferritin 141 26 - 388 ng/mL LAB CHEMISTRY METHOD 10/27/2024 7:45 PM EDT [facility] Blood Venous blood specimen / Unknown Venipuncture / Unknown 10/27/2024 4:31 PM EDT 10/27/2024 4:31 PM EDT Nael Gonzalez MD LAB BLOOD ORDERABLES Final Resul t Performing Organization Address [facility] Co de Phone Number [facility] [address] [place] [address], [place] [phone] * Colonoscopy (07/09/2019) [facility] Colonoscopy no interpretation , abstracted Anatomical Region Laterality Modality Other Result [facility] Final Result * HIV Screening (05/01/2019) [facility] HIV Screening abstracted Historical [facility] Final Result * Hepatitis C Screening (05/01/2019) [facility] Hepatitis C Screening abstrated Historical [facility] Final Result from Last 3 Months or Most Recently Relevant to Health Maintenance Insurance [employer] CROSS - ID GENERIC Care Teams Wind Turbine Controls Engineer Relationship Specialty Start Date End Date Nael Gonzalez MD [address] [place] [id number] PCP - General 05/07/1999
== END ==
LOC: HO.CARD 08:58
PROVIDERS: PCP Internal Medicine; Visit Provider Nurse Practitioner Family
DX: R00.2 Palpitations (principal)
CPT/HCPCS: 93017; 93242; 93306; Q9957

== ENCOUNTER → 2025-01-18 09:05 | Outpatient (BNV) | payer BC, SELFPAY | PROVIDERS: PCP Internal Medicine | DX: R00.2 Palpitations (principal) | CPT/HCPCS: 93016; 93018; 93320; 93325; 93350; 93352 ==

== ENCOUNTER 2025-03-05 09:24 | Outpatient (AMB) | payer BC, SELFPAY ==
[2025-03-05 09:27] VITALS: BP 108/62; PULSE 64; BMI 34.1
--- NOTE | 2025-03-05 09:27 | A.OFFVIS_ITS ---
Vital Signs 03/05/25 09:27 Height 6 ft 1 in Weight 258 lb 13.163 oz BMI 34.1 BP 108/62 Blood Pressure Location Lt brachial Position Sitting Pulse 64 Pulse Source Pulse Oximeter Intake Visit Reasons: f/up and r/s x3 by pt s/p testing Remote Inpatient Coder Required: No Allergies No Known Allergies (No Known Allergies*) Allergy (Verified 03/05/25 09:29) Medication List - Last Reconciled 03/05/25 by VU Perez [id number] 50-325-40 mg 1 tab PO Q6H PRN sertraline 25 mg PO DAILY HPI HPI f/up and r/s x3 by pt s/p testing: Details: Rubén is a 54-year-old male with no cardiac history who is being evaluated for elevated heart rates and headache. On last visit a Holter monitor, exercise stress test and echocardiogram were ordered and he now presents for follow-up. Today he reports he has been doing much better. He no longer notices the rapid heart rate and is no longer getting headaches. 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 He has no cardiac concerns at this time. He does not get chest discomfort, shortness of breath, lightheadedness, edema. [facility] Social History Alcohol intake: current Alcohol intake frequency: holidays/special occasions only Alcohol type: beer and hard liquor Review of Systems Const All systems reviewed & are unremarkable except as noted in HPI and below ENT Denies dizziness Card Denies chest pain, Denies chest pain at rest, Denies chest pain with activity, Denies rapid heart rate, Denies pedal edema, Denies edema, Denies leg edema, Denies lightheadedness, Denies palpitations, Denies dyspnea, Denies dyspnea on exertion and Denies orthopnea Resp Denies cough, Denies dyspnea and Denies dyspnea on exertion GI Denies hematochezia and Denies change in stool character Musc Denies abnormal gait, Denies limited range of motion, Denies muscle cramps, Denies muscle weakness, Denies numbness, Denies radiating pain into limb, Denies stiffness and Denies tingling Neuro Denies abnormal gait, Denies dizziness, Denies numbness and Denies tingling Endo Denies palpitations Physical Exam Vital Signs: Last Vital Signs Pulse 64 03/05/25 09:27 BP 108/62 03/05/25 09:27 BMI result Body Mass Index 34.1 Const General: cooperative, healthy appearing, comfortable and no acute distress Orientation/consciousness: patient oriented x3 Neck Neck: Yes normal visual inspection and Yes no JVD Resp Effort & Inspection: normal respiratory effort Auscultation: clear to auscultation bilaterally, no crackles, no rales, no rhonchi and no wheezes Cardio Rate: regular rate Rhythm: regular rhythm Heart sounds: S1 normal heart sound present, S2 normal heart sound present, no murmurs and no rubs Neuro General: patient oriented x3 Extrem General: Yes normal to inspection and No no pedal edema Psych Appearance: grossly normal Mental Status: mental status grossly normal Speech and movement: Normal speech and movement present Assessment & Plan Assessment & Plan (1) Palpitations: Code(s): R00.2 - Palpitations Category: Medical Plan: Reports of elevated heart rate with physical activity, resulting in headache. EKG done in the emergency room shows normal sinus rhythm with no acute ST or T- wave abnormalities, rate 81. Echocardiogram 01/18/2025 showed EF 55-60%, no valve or regional wall motion abnormalities. An exercise stress test done 01/18/2025 with exercise 6 minutes 18 seconds with no angina, normal EKGs and normal blood pressure. A Holter monitor done 01/18/2025 for close to 3 days shows sinus rhythm with average heart rate 73 beats per minute, short SVE runs, longest 24 beats at a rate of 167, rare ventricular ectopy. Test results reviewed with him in detail. Brief atrial tach is likely an incidental finding and not related to his presenting symptom. Discussed reduction in caffeinated beverages, maintain good hydration. No indication for med management for SVE runs at this time. If he does have prolonged runs in the future then beta helen can be considered. Cardiology follow-up 1 year, sooner if needed. (2) Atrial tachycardia: Code(s): I47.19 - Other supraventricular tachycardia Category: Medical Plan: Brief episodes of atrial tach/SVT noted on his Holter monitor. Asymptomatic. Plan I discussed with the patient that the episodes of supraventricular tachycardia a re brief and not harmful at this time. We reviewed techniques to manage prolonged episodes, such as breath-holding and ice water immersion. I advised the patient to monitor his heart rate and report any prolonged episodes. A follow-up is scheduled for one year, with the option to return sooner if symptoms develop. Patient Instructions: - Monitor your heart rate periodically. - If you experience a prolonged rapid heartbeat, try breath-holding or immersing your face in ice water. - Stay hydrated and limit caffeine intake to less than one 30-ounce mug per day. - Schedule a follow-up in one year or sooner if you notice any new symptoms. Patient was informed and verbally consented to the use of an ambient scribe for clinic note documentation during this visit. Visit time spent on chart review, interview, assessment, orders, documentation. Coding Level of Care Code Est Pt Level 4 (89778) Complex EM visit Add On G2211 Diagnoses Palpitations R00.2 Atrial tachycardia I47.19 Time Spent (min) 28
--- OUTSIDE RECORDS SUMMARY | 2025-03-05 10:13 | XMS_ITS | Clinical Summary ---
Author Organization [address] Address [address] [place] [phone] Phone Care Team Providers Care Pinion And Wheel Truer Name Role Phone Nael Gonzalez MD Primary Care Provider [phone] Allergies No known active allergies Medications multivitamin (MULTIPLE VITAMINS ORAL) Take by mouth daily. Active SAW PALMETTO ORAL OTC Active acetaminophen (TYLENOL) 500 mg tablet Take 2 tablets (1,000 mg total) by mouth every 8 (eight) hours if needed. Was given at the ER Active ibuprofen (ADVIL,MOTRIN) 600 mg tablet Take 1 tablet (600 mg total) by mouth every 8 (eight) hours if needed for headaches. Was given at the ER Active sertraline (ZOLOFT) 25 mg tablet Take 1 tablet (25 mg total) by mouth 1 (one) time each day. 30 tablet 5 5 Active sertraline (ZOLOFT) 25 mg tablet Take 1 tablet (25 mg total) by mouth 1 (one) time each day. 30 each 5 5 02/18/20 25 Discontinued Active Problems Problem Noted Date Diagnosed Date Depression 11/03/2024 Hyperglycemia 11/03/2024 Obesity (BMI 30-39.9) 11/03/2024 Anemia 11/03/2024 Overview (11/03/2024): Mild, ferritin 140, B12 folate level within normal limit, colonoscopy up-to-date in 2019 Memory difficulties 12/13/2017 Nocturia 08/14/2017 Cyst of right kidney 07/22/2017 Lumbar spondylosis 07/22/2017 Pure hypercholesterolemia 07/22/2017 Immunizations Name Administration Dates Next Due Influenza [...] Comments Diabetes Father Heart attack Father 1st [place] at age 6 2 Hypertension Father Other: [...] care for your loved ones. For example, child watch attendant or elderly care for an older adult? [...] 10:00 AM EDT Office Visit [facility] [address] [place], [place] [phone] Kimberly Jackson NP [address] [place], [place] Health Maintenance Due Date Last Done Comments Hepatitis B Vaccines (1 of 3 - 19+ 3-dose series) 09/22/1987 Pneumococcal Vaccine: 50+ Years (1 of 1 - PCV) 2018 COVID-19 Vaccine (2023-2 5 season) 2024 07/03/2021, 11/12/2020, 10/22/2020 Influenza Vaccine (#1) 2025 , 05/08/2013 Social Influencers of Health Screening 08/15/2025 08/15/2024 Colorectal Cancer Screening: Colonoscopy 07/09/2029 07/09/2019 Cholesterol Screening (Lipid Panel) 10/27/2029 10/27/2024, 05/01/2019 DTaP,Tdap,and Td Vaccines (3 - Td or Tdap) 03/06/2034 03/06/2024, 05/08/2013 HIV Screening Completed 05/01/2019 Hepatitis C Screening Completed 05/01/2019 Zoster Vaccines Completed 08/04/2020, 04/08/2020 Depression Screening Completed 08/15/2024 HIB Vaccines Aged Out No longer eligi [...] Procedure Name Priority Date/Time Associated Diagnosis Comments LIPID PANEL WITH REFLEX TO DIRECT LDL Routine 10/27/2024 4:31 PM EDT Family history of diabetes insipidus COLONOSCOPY Routine 07/09/2019 HEPATITIS C SCREENING Routine 05/01/2019 HIV SCREENING Routine 05/01/2019 from Last 3 Months or Most Recently Relevant to Health Maintenance Results * (ABNORMAL) Lipid panel with reflex to direct LDL (10/27/2024 4:31 PM EDT) Cholesterol 193 0 - 200 mg/dL LAB CHEMISTRY METHOD 10/27/2024 7:23 PM EDT [facility] Triglycerides 277(H) 0 - 150 mg/dL LAB CHEMISTRY METHOD 10/27/2024 7:23 PM EDT [facility] HDL 44 >=40 mg/dL LAB CHEMISTRY METHOD 10/27/2024 7:23 PM EDT [facility] LDL Calculated 94 0 - 100 mg/dL LAB CHEMISTRY METHOD 10/27/2024 7:23 PM EDT [facility] VLDL Cholesterol Heath 55.4 mg/dL LAB CHEMISTRY METHOD 10/27/2024 7:23 PM T [facility] Non HDL Chol. (LDL+VLDL) 149(H) <145 mg/dL LAB CHEMISTRY METHOD 10/27/2024 7:23 PM EDT [facility] Chol/HDL Ratio 4.4 0.0 - 4.4 LAB CHEMISTRY METHOD 10/27/2024 7:23 PM T [facility] Blood Venous blood specimen / Unknown Venipuncture / Unknown 10/27/2024 4:31 PM EDT 10/27/2024 4:31 PM EDT us Nael Gonzalez MD LAB BLOOD ORDERABLES Final Resul t [facility] [address] [place] [address], * Colonoscopy (07/09/2019) Colonoscopy no interpretation , abstracted Anatomical Region Laterality Modality Other Historical Provider HEALTH MAINTENANCE Final Result * HIV Screening (05/01/2019) HIV Screening abstracted Historical Provider HEALTH MAINTENANCE Final Result * Hepatitis C Screening (05/01/2019) Hepatitis C Screening abstrated Historical Provider HEALTH MAINTENANCE Final Result from Last 3 Months or Most Recently Relevant to Health Maintenance Insurance [employer] - ID GENERIC Care Teams Pinion And Wheel Truer Relationship Specialty Start Date End Date Nael Gonzalez MD [address] [place] [address] PCP - General 05/07/1999
--- OUTSIDE RECORDS SUMMARY | 2025-03-05 10:13 | XMS_ITS | Clinical Summary ---
Author Organization [facility] Address [address] [place] [address] Phone Care Team Providers Care Novelty Chain Maker Name Role Phone Unknown, Unknown Primary Care Provider Unavai lable Allergies No known active allergies Medications multivit-min/devika aj fumarate (MULTI VITAMIN ORAL) Take by mouth. Active Active Problems No known active problems Social History Tobacco Use Types Packs/Day Years Used Date Smoking Tobacco: Former Cigarettes Q uit: 2019 Smokeless Tobacco: Never Alcohol Use Standard Drinks/Week Comments Not Currently 0 (1 standard drink = 0.6 oz pur e alcohol) Occassionally Education Answer Date Recorded Are you interested in more education? Not on mike e 01/21/2023 Are you concerned about learning? Not on file 01/21/2023 No 01/21/2023 No 01/21/2023 Digital Access Answer Date Recorded No 01/21/2023 No 01/21/2023 Reliable internet access at home? Not on file 01/21/2023 Device with a working camera? Not on file Sex and Gender Information Value Date Recorded Sex Assigned at Not on file Legal Sex Male 8:19 AM EDT Gender Identity Not on file Sexual Orientation Not on file Last Filed Vital Signs Vital Sign Reading Time Taken Comments Blood Pressure 130/78 07/24/2023 10:03 AM EST Pulse 72 07/24/2023 10:03 AM EST Temperature 36.1 C (97 F) 01/21/2023 4:29 PM EDT Respiratory Rate 18 07/24/2023 10:03 AM EST Oxygen Saturation 100% 07/24/2023 10:03 AM EST Inhaled Oxygen Concentration - - Weight 117.9 kg (260 lb) 07/24/2023 10:03 AM EST Height 185.4 cm (6' 1 ) 07/24/2023 10:03 AM EST Body Mass Index 34.3 07/24/2023 10:03 AM EST Plan of Treatment Health Maintenance Due Date Last Done Comments Adult Td,Tdap Booster 1968 LIPID PANEL 1968 DEPRESSION SCREENING 1980 SMOKING Hx and SMOKELESS TOB ACCO SCREENING 1981 HEPATITIS C SCREENING 1986 HIV ONE-TIME SCREENING (18-6 5 YEARS) 1986 SCREENING FOR DIABETES 09/22/2003 COLOGUARD 2013 COLONOSCOPY 2013 COLORECTAL CANCER SCREENING 2013 FIT TEST 2013 FOBT 2013 SIGMOIDOSCOPY 2013 VIRTUAL COLONOSCOPY 2013 PNEUMOCOCCAL VACCINES (50+ y ears) (1 of 1 - PCV) 2018 ZOSTER VACCINES (1 of 2) 2018 COVID-19 VACCINE ( - 2023-2 5 season) 2024 HEPATITIS A VACCINES Aged Out No long er eligible based on patient's age to complete this topic HIB VACCINES Aged Out No longer eligi ble based on patient's age to complete this topic MENINGOCOCCAL VACCINES (ACWY) Aged Out No longer eligible based on patient's age to complete this topic MENINGOCOCCAL VACCINES (B) Aged Out N o longer eligible based on patient's age to complete this topic Medical Devices Not on file Insurance [facility] EPO PPO EPO PPO EPO PPO EPO PPO EPO PPO EPO PPO EPO Care Teams Novelty Chain Maker Relationship Specialty Start Date End Date Unknown, Unknown, PCP - General 02/13/22 Additional Source Comments The information contained in this document represents components of the legal health record. It is not the complete legal health record.[facility]
--- OUTSIDE RECORDS SUMMARY | 2025-03-05 10:13 | XMS_ITS | Clinical Summary ---
Author Organization [facility] Address [address] [place] [address] Care Team Providers Care Inspector Screen Printing Name Role Phone Unknown, Pcp MD Primary Care Provider Unavailabl e Allergies No known active allergies Medications ibuprofen (MOTRIN) 600 MG tablet Take 1 (one) tablet (600 mg total) by mouth every 8 (eight) hours as needed. 20 tablet 09/04/2024 Active acetaminophen (TYLENOL EXTRA STRENGTH) 500 MG tablet Take 2 (two) tablets (1,000 mg total) by mouth every 8 (eight) hours as needed. 20 tablet 09/04/2024 Active ondansetron (ZOFRAN) 4 MG tablet Take 1 (one) tablet (4 mg total) by mouth every 6 (six) hours. 12 tablet 09/04/2024 Active Social History Tobacco Use Types Packs/Day Years Used Date Smoking Tobacco: Never Assessed Sex and Gender Information Value Date Recorded Sex Assigned at Not on file Legal Sex Male 9:12 AM EST Gender Identity Not on file Sexual Orientation Not on file Last Filed Vital Signs Vital Sign Reading Time Taken Comments Blood Pressure 131/78 09/04/2024 11:42 AM EST Pulse 63 09/04/2024 11:42 AM EST Temperature 36.3 C (97.4 F) 09/04/2024 11:42 AM EST Respiratory Rate 18 09/04/2024 11:42 AM EST Oxygen Saturation 98% 09/04/2024 11:42 AM EST Inhaled Oxygen Concentration - - Weight - - Height - - Body Mass Index - - Plan of Treatment Health Maintenance Due Date Last Done Comments HEPATITIS C SCREENING 1985 COLONOSCOPY (CRC) 2013 COLORECTAL CANCER SCREENING (CRC) 2013 CT COLONOGRAPHY (CRC) 2013 FIT-DNA (CRC) 2013 FIT/iFOBT (CRC) 2013 SIGMOIDOSCOPY (CRC) 2013 PNEUMOCOCCAL VACCINE: 50+ YEARS (1 of 1 - PCV) 2018 ZOSTER VACCINE (1 of 2) 2018 COVID-19 IMMUNIZATION (1 - season) 2024 INFLUENZA VACCINE (#1) 2025 05/08/2013 DTAP/TDAP/TD VACCINES (3 - T d or Tdap) 03/06/2034 03/06/2024, 05/08/2013 RSV IMMUNIZATION (1 - 1-dose 75+ series) 09/22/2043 IPV VACCINES Aged Out No longer eligi ble based on patient's age to complete this topic MENINGOCOCCAL B VACCINE Aged Out No l onger eligible based on patient's age to complete this topic Insurance [employer] (OOS) Care Teams Inspector Screen Printing Relationship Specialty Start Date End Date Unknown, Pcp, Unknown Address Unknown [place] [id number] PCP - General Internal Medicine 09/04/24
== END 2025-03-05 09:52 | disposition home or self-care (01) ==
LOC: HO.HCS 09:25
PROVIDERS: PCP Internal Medicine; Visit Provider Nurse Practitioner Family
DX: R00.2 Palpitations (principal); I47.19 Other supraventricular tachycardia
CPT/HCPCS: 99214